=== PATIENT | female | born 1960 | race Caucasian/White ===

== ENCOUNTER → 2023-09-14 11:56 | Outpatient (REF) | payer OTHER, SELFPAY | LOC: HWRAD 11:56 | PROVIDERS: ATTENDING PHYSICIAN Family Medicine | DX: M25.552 Pain in left hip (principal) | CPT/HCPCS: 73502 ==

== ENCOUNTER → 2023-10-11 12:08 | Outpatient (REF) | payer OTHER, SELFPAY ==
[2023-10-11 16:45] LABS: % Basophils 0.5 % (0-2); % Eosinophils 1.6 % (0-6); % Immature Granulocytes 0.2 % (0-0.5); % Lymphocytes 24.1 % (20.5-51.1); % Monocytes 8.6 % (1.7-9.3); Absolute Eosinophils 0.1 10^3/uL (0-0.7); Absolute Lymphocytes 1.5 10^3/uL (1.2-3.4); Absolute Monocytes 0.6 10^3/uL (0.1-0.6); Absolute Neutrophils 4.2 10^3/uL (1.4-6.5); Hematocrit 40.3 % (37.0-47.0); Hemoglobin 13.2 g/dL (12.0-16.0); Mean Corp Hgb Conc. 32.8 g/dL (33.0-37.0); Mean Corpuscular Hgb 31.4 pg (27.0-31.0); Mean Platelet Volume 10.6 fL (7.4-10.4); Nucleated Red Blood Cells % 0 %; Platelet Count 221 10^3/uL (130-400); Red Cell Dist. Width 13.4 % (11.5-14.5); White Blood Cell Count 6.4 10^3/uL (4.8-10.8)
[2023-10-11 16:48] LABS: Blood Urea Nitrogen 20 mg/dl (7-17); Calcium 9.9 mg/dl (8.4-10.2); Carbon Dioxide 26 mmol/L (22-30); Chloride 103 mmol/L (98-107); Glucose 95 mg/dl (70-99); Potassium 4.1 mmol/L (3.5-5.1); Sodium 137 mmol/L (135-145); eGFR > 60.00
== END ==
LOC: HWCARD 12:08
PROVIDERS: ATTENDING PHYSICIAN Orthopaedic Surgery; FAMILY PHYSICIAN Family Medicine
DX: Z01.818 Encounter for other preprocedural examination (principal)
CPT/HCPCS: 36415; 80048; 85025; 93005

== ENCOUNTER 2024-01-17 17:06 | Emergency (ER) | payer OTHER, SELFPAY ==
[2024-01-17] VITALS (15 sets, daily range): BP systolic 116–151; BP diastolic 70–87; BMI 32.3
--- NOTE | 2024-01-17 17:15 | ED.PDOC.TRB ---
ED Provider Triage
-
Patient seen by provider in Triage?: Seen in Triage
63 year old female with right wrist pain after fall. She has swelling and deformity to wrist with puncture wounds near deformity. No thinners. X-ray ordered. May need reduction of fracture.
[2024-01-17] MEDS: DILAUDID 1 MG IV (17:42)
--- NOTE | 2024-01-17 17:50 | ED.GENMED ---
History of Present Illness
General
Chief Complaint: Musculo-Skeletal Complaint
Source: patient
Exam Limitations: none
Time Seen by Provider: 01/17/24 17:39
History of Present Illness
History of Present Illness:
See MDM
Past History
Past History
ED Past Medical History: Other (Crohn's disease and irritable bowel syndrome.)
ED Past Surgical History: None
Social History
Tobacco: Non-smoker
Alcohol: None
Drug: None
Personal:
Living: with family
Employment: Employed
Family History
Family History: Other (Noncontributory)
Phy Exam
Physical Exam
Physical Exam:
See MDM
Course
Orders/Labs/Results
Orders:
Orders
01/17/24 17:15
CR Wrist - Right Min 3 Views Urgent
Comment:
Reason For Exam: fall, with deformity
01/17/24 17:41
HYDROmorphone [Dilaudid] 1 mg .ROUTE .STK-MED ONE
01/17/24 17:42
HYDROmorphone [Dilaudid] 1 mg IV NOW STA
01/17/24 17:44
Propofol [Diprivan] 20 ml .ROUTE .STK-MED
01/17/24 17:52
Doxycycline [Vibramycin] 100 mg PO NOW STA
01/17/24 18:20
Oxycodone/Acetaminophen [Percocet 5/325] 1 tablet PO NOW STA
Wrist, Right 3 Views [CR Wrist - Right Min 3 Views] Urgent
Comment:
Reason For Exam: post reduction
01/17/24 19:12
Oxycodone/Acetaminophen [Percocet 5/325] 1 tablet PO NOW STA
Vital Signs
Initial and Last Documented VS:
Initial Vital Signs
Temp Pulse Resp BP Pulse Ox
97.9 F 67 20 119/70 99
01/17/24 17:15 01/17/24 17:15 01/17/24 17:15 01/17/24 17:15 01/17/24 17:15
Last Documented Vital Signs
Temp Pulse Resp BP Pulse Ox
97.9 F 66 20 130/79 99
01/17/24 18:48 01/17/24 18:48 01/17/24 18:48 01/17/24 18:48 01/17/24 18:48
Procedures
Moderate Sedation
ASA Risk Score: Class II
Chart and allergies reviewed: Yes
Consent for anesthesia obtained: Yes
Time out completed (validating right patient & procedure): Yes
Moderate Sedation Start Time(when first medication is given): 18:08
History of difficult intubation: No
Airway free of obstruction: Yes
Patient has a gag reflex: Yes
Patient is able to open mouth: Yes
Patient has no dentures: No
Patient has no loose teeth: Yes
Medication administered by Provider during Moderate Sedation: IV Propofol (mg)
Total dose administered: 150
Time drug administered: 18:08
Moderate Sedation Procedure End Time: 18:18
Joint/Fracture Reduction
Right Distal Wrist:
Indication for procedure:: Distal radius and ulna fracture
Procedure completed by: Jordan Moraes DO
Consent form signed: Yes
Joint reduced: with anesthesia sedation
Injury was: closed
Further treatement: needs further treatment
Post reduction exam: stable
Capillary Refill: normal
Normal distal neurovascular exam?: Yes
Peripheral Pulses: radial (right): 2+
MDM/Problems Addressed
Differential Diagnosis Includes:
HPI and MDM Narrative:
63-year-old female presenting with a trip and fall. She has an obvious deformity to her right hand and wrist. She is left-hand dominant. X-ray performed showing distal radius and ulna fracture with dislocation. There is mild tenting at the area.
Consent for moderate sedation and reduction and start antibiotics
Physical exam
General: Mildly uncomfortable
HEENT: protecting airway
Neck: appears supple
CV: No evidence of cyanosis
Resp: No accessory muscle use
Abd: Non-distended
Extremities: Deformity and swelling to right wrist. Sensation grossly intact. Pulses intact
Neuro: alert
Psych: Normal affect
Skin: Small break in the skin at the fracture site
Problems Addressed including Acute and Chronic Conditions affecting care:
1. Right distal radius and ulna fracture
Acuity: acute
Prognosis: unstable
Details: Patient signed consent for moderate sedation and reduction. Given that there is skin tenting and mild abrasion, will treat as possible open fracture with Doxy
Updates
Reduction shows improvement of the fracture and dislocation.
Will start doxycycline given the break in the skin near the fracture.
Discussed follow-up with orthopedics
Differential Diagnosis (but not limited to): Wrist contusion, wrist fracture
Testing considered: CT head but she denies head trauma
Drug therapy (if applicable): OTC meds, please see d/c instruction regarding Rx drugs
Amount and/or Complexity of Data Reviewed
Clinical info obtained from: Patient
External data reviewed: N/A
Labs I independently reviewed (but not limited to): N/A
Radiology: X-ray independently reviewed: Distal radius and ulna fracture of right wrist with dislocation
Pulse Ox: not hypoxic
EKG independently reviewed: N/A
Meat Pickler: N/A
Critical Care: N/A
Risk of Complication:
Social Determinants of health: Good social support
Discussed with other providers: N/A
Escalation of Care includes Admit/Obs: After being observed in the Emergency Department, pt stable for discharge.
Occasional wrong word or 'sound a like' substitutions may have occurred due to the inherent limitations of voice recognition software. Read the chart carefully and recognize, using context, where substitutions have occurred.
*Critical Care Note
Total Time (30-74mins, 75-104mins- exclusive of procedures): Not Applicable
ED Attending Note
-
Portions of this chart may have been created with voice recognition software.� Occasional wrong word or��sound alike� substitutions may have occurred due to the inherent limitations of voice recognition software.
Discharge Plan
Departure
Patient Disposition: Home (Routine Discharge)
Date of Disposition: 01/17/24
Time of Disposition: 19:25
Patient with high blood pressure during this ER visit?: No
Discharge Problem:
Fracture of radius and ulna
Instructions: MODERATE SEDATION ADULT, Wrist Fracture
Prescriptions:
New
doxycycline hyclate 100 mg capsule
100 mg PO BID Qty: 14 0RF
diclofenac potassium 50 mg tablet
50 mg PO BID Qty: 20 0RF
oxycodone 5 mg tablet
5 mg PO Q8H PRN (Reason: Pain) Qty: 14 0RF
No Action
levothyroxine 112 mcg tablet
112 mcg PO DAILY
rosuvastatin 5 mg tablet
5 mg PO QPM
Stelara
1 dose SC [id number]
Theragran Tablet
1 tab PO DAILY
Referrals:
Ismael Stuart MD [Active] -
Bradford Dale DO [Family Provider] -
Activity Restrictions/Additional Instructions:
Please return for any worsening symptoms.
You may return at any time if you have further concerns.
Please call the orthopedist for first available appointment.
You were given a prescription for narcotics. If you require this pain medicine, please take a daily [id number] stool softener to avoid constipation.
Thank you for choosing [facility].
Interventions
Interventions:
*Risk Screen - Suicide Last Done: 01/17/24 17:15
*General Assessment Last Done: 01/17/24 17:15
*Neglect/Abuse Screening Last Done: 01/17/24 17:15
ED- Fall Risk Assessment Last Done: 01/17/24 17:38
*ED COVID-19 Vaccine History Last Done: 01/17/24 17:38
ED-Musculoskeletal Assessment Last Done: 01/17/24 17:38
Discharge Date and Time
Print Language: [place]
[2024-01-17] MEDS: PERCOCET 5/325 1 TABLET PO ×2 (18:37→19:50)
[2024-01-17] MEDS: VIBRAMYCIN 100 MG PO (18:37)
== END 2024-01-17 20:08 | disposition home or self-care (01) ==
LOC: EMR 17:06
PROVIDERS: EMERGENCY PHYSICIAN Student in an Organized Health Care Education/Training Program; FAMILY PHYSICIAN Family Medicine
DX: S52.301A Unspecified fracture of shaft of right radius, initial encounter for closed fracture (principal); S52.601A Unspecified fracture of lower end of right ulna, initial encounter for closed fracture; W01.0XXA Fall on same level from slipping, tripping and stumbling without subsequent striking against object, initial encounter; K58.9 Irritable bowel syndrome, unspecified; K50.90 Crohn's disease, unspecified, without complications; Z88.0 Allergy status to penicillin
CPT/HCPCS: 25565; 99285; 99152; 96374; 73110

== ENCOUNTER → 2024-05-15 08:24 | Day surgery (SDC) | payer MEDICARE, OTHER, SELFPAY ==
[2024-05-15 10:42] LABS: Hematocrit 41.8 % (37.0-47.0); Hemoglobin 13.6 g/dL (12.0-16.0); Mean Corp Hgb Conc. 32.5 g/dL (33.0-37.0); Mean Corpuscular Hgb 30.8 pg (27.0-31.0); Mean Corpuscular Volume 94.6 fL (81.0-99.0); Mean Platelet Volume 9.8 fL (7.4-10.4); Platelet Count 245 10^3/uL (130-400); Red Blood Cell Count 4.42 10^6/uL (4.20-5.40); Red Cell Dist. Width 14.5 % (11.5-14.5); White Blood Cell Count 4.9 10^3/uL (4.8-10.8)
[2024-05-15 11:17] LABS: Blood Urea Nitrogen 21 mg/dl (7-17); Calcium 9.4 mg/dl (8.4-10.2); Carbon Dioxide 29 mmol/L (22-30); Chloride 103 mmol/L (98-107); Glucose 95 mg/dl (70-99); Potassium 4.3 mmol/L (3.5-5.1); Sodium 139 mmol/L (135-145); eGFR > 60.00
== END ==
LOC: SDSPAT 08:24
PROVIDERS: ATTENDING PHYSICIAN Orthopaedic Surgery; FAMILY PHYSICIAN Family Medicine
DX: Z01.810 Encounter for preprocedural cardiovascular examination (principal); Z01.812 Encounter for preprocedural laboratory examination
CPT/HCPCS: 93005; 36415; 80048; 85027

== ENCOUNTER 2024-05-23 06:04 | Day surgery (SDC) | payer MEDICARE, OTHER, SELFPAY ==
[2024-05-15 13:46] VITALS: BMI 33.1
[2024-05-23] VITALS (8 sets, daily range): BP systolic 121–147; BP diastolic 73–90; BMI 33.1
[2024-05-23] MEDS: TYLENOL 1000 MG PO (07:08)
[2024-05-23] MEDS: CELEBREX 200 MG PO (07:08)
[2024-05-23] MEDS: NORMOSOL-R/PLASMALYTE-A 1000 IV (07:09)
== END 2024-05-23 12:17 | disposition home or self-care (01) ==
LOC: SDS 06:04
PROVIDERS: ATTENDING PHYSICIAN Orthopaedic Surgery; FAMILY PHYSICIAN Family Medicine
PROC: 0QB20ZZ Excision of Right Pelvic Bone, Open Approach (ICD-10-PCS; 2024-05-23)
PROC: 0PUH07Z Supplement Right Radius with Autologous Tissue Substitute, Open Approach (ICD-10-PCS; 2024-05-23)
DX: S52.591K Other fractures of lower end of right radius, subsequent encounter for closed fracture with nonunion (principal); X58.XXXD Exposure to other specified factors, subsequent encounter
CPT/HCPCS: 25405; C1713

== ENCOUNTER → 2024-06-28 09:26 | Outpatient (REF) | payer MEDICARE, OTHER, SELFPAY | LOC: HWRAD 09:26 | PROVIDERS: ATTENDING PHYSICIAN Family Medicine; OTHER PHYSICIAN Orthopaedic Surgery; REFERRING PHYSICIAN Internal Medicine Gastroenterology | DX: R93.7 Abnormal findings on diagnostic imaging of other parts of musculoskeletal system (principal); Z78.0 Asymptomatic menopausal state | CPT/HCPCS: 77080 ==

== ENCOUNTER → 2024-08-24 09:44 | Outpatient (REF) | payer MEDICARE, OTHER, SELFPAY | LOC: HWRAD 09:44 | PROVIDERS: ATTENDING PHYSICIAN Orthopaedic Surgery; FAMILY PHYSICIAN Family Medicine | DX: M25.531 Pain in right wrist (principal) | CPT/HCPCS: 73200 ==